=== PATIENT | female | born 1980 ===

== ENCOUNTER 2016-12-30 13:08 | Outpatient (CLI) | payer OTHER ==
--- NOTE | 2016-12-30 14:19 | Mammography Report ---
Bilateral digital diagnostic mammogram with CAD and bilateral targeted breast ultrasound. History: Palpable abnormalities in both breasts. Findings: There is heterogeneous density of the fibroglandular tissue. There are no focal masses or architectural distortion. No suspicious microcalcifications are seen. Sonographic evaluation of the palpable abnormalities in both breasts demonstrates no evidence of cystic or solid mass. No other significant findings are seen. Impression: No suspicious imaging findings. BI-RADS code: 2. Recommendation: Routine screening schedule, ACS guidelines..
== END 2016-12-30 13:09 | disposition home or self-care (01) ==
LOC: SPVWC 13:08
PROVIDERS: ATTEND Obstetrics & Gynecology
DX: N63 Unspecified lump in breast (principal)
CPT/HCPCS: 76642; G0204; 77066